=== PATIENT | female | born 2000 | race Caucasian/White ===

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

== ENCOUNTER 2018-05-28 20:21 | Emergency (ER) | payer BC ==
[2018-05-28 21:46] LABS: ALT (SGPT) 14 U/L (8-55); AST (SGOT) 20 U/L (5-30); Albumin 4.5 g/dL (3.5-5.0); Alkaline Phosphatase 59 U/L (40-150); Anion Gap 14 mmol/L (10-20); BUN (Urea Nitrogen) 15 mg/dL (8.4-21.0); Bilirubin, Total 1.1 mg/dL (0.2-1.2); CK (CPK) 145 U/L (29-168); Calc. Creatinine Clearance 0 mL/min (70-130); Calcium 9.3 mg/dL (7.8-10.44); Carbon Dioxide 24 mmol/L (22-29); Chloride 107 mmol/L (98-107); Estimated GFR-MDRD Greater than 90; Globulin 2.7 g/dL (2.4-3.5); Glucose 89 mg/dL (70-105); Potassium 3.6 mmol/L (3.5-5.1); Protein, Total 7.2 g/dL (6.0-8.3); Sodium 141 mmol/L (136-145)
[2018-05-28 21:52] LABS: Hemoglobin 12.4 g/dL (12.0-16.0); Mean Corpuscular HGB CONC 33.6 g/dL (32.0-36.0); Mean Corpuscular Hemoglobin 31.1 pg (25.0-35.0); Mean Corpuscular Volume 92.6 fL (78.0-98.0); Platelet Count 251 thou/uL (130-400); RBC Distribution Width 11.4 % (11.5-14.5); Red Blood Cell (RBC) Count 3.99 mill/uL (4.00-5.20); White Blood Cell (WBC) Count 8.9 thou/uL (4.8-10.8)
[2018-05-28 21:53] LABS: CKMB 1.5 ng/mL (0-6.6); Lymphocytes 37 % (28-48); MDiff Complete? YES; Monocytes 2 % (0-4); Neutrophil 61 % (31-61); Troponin I Less than 0.010 ng/mL (< 0.028)
== END 2018-05-28 22:16 | disposition home or self-care (01) ==
LOC: MADERS 20:21
DX: R07.89 Other chest pain (principal); J45.909 Unspecified asthma, uncomplicated; F41.9 Anxiety disorder, unspecified; F32.9 Major depressive disorder, single episode, unspecified; Z79.899 Other long term (current) drug therapy
CPT/HCPCS: 36415; 80053; 82550; 82553; 84484; 85025; 85379